=== PATIENT | male | born 1975 | race Hispanic/Latino ===

== ENCOUNTER 2022-07-07 16:34 | Emergency (ER) | payer OTHER ==
[~2022-07-07] VITALS: Ht 182.9 cm; Wt 90.7 kg
[2022-07-07 16:37] VITALS: BP 149/109
[2022-07-07] MEDS ORDERED: EMTR1TAB11 PO (17:39)
== END 2022-07-07 18:31 | disposition home or self-care (01) ==
LOC: EDH 16:34
DX: Z20.6 Contact with and (suspected) exposure to human immunodeficiency virus [HIV] (principal)
CPT/HCPCS: 36415; 86701; 87390